=== PATIENT | male | born 1975 | race Caucasian/White ===

== ENCOUNTER 2017-08-31 09:12 | Emergency (ER) | payer SELFPAY ==
[2017-08-31] MEDS ORDERED: HYDROcodone/Acetaminophen 5/325 mg Tablet ONE (09:47)
[2017-08-31] MEDS ORDERED: Ondansetron HCl/PF 4 MG/2 ML Vial ONE (10:07)
[2017-08-31 10:09] LABS: #Eosinphils 0.2 thou/uL (0.0-0.7); #Lymphocytes 1.4 thou/uL (1.20-3.40); #Monocytes 0.9 thou/uL (0.11-0.59); #Neutrophils 6.6 thou/uL (1.40-6.50); %Basophils 0.3 % (0.0-1.0); %Eosinophils 1.7 % (0.0-10.0); %Lymphocytes 15.5 % (21.0-51.0); %Monocytes 9.5 % (0.0-10.0); Hematocrit 44.3 % (42.0-52.0); Mean Platelet Volume 6.8 fL (7.4-10.4); Red Blood Cell (RBC) Count 4.78 mill/uL (4.70-6.10); White Blood Cell (WBC) Count 9.1 thou/uL (4.8-10.8)
[2017-08-31 10:20] LABS: Lactic Acid - Sepsis 0.8 mmol/L (0.5-2.2)
[2017-08-31 10:25] LABS: ALT (SGPT) 39 U/L (8-55); AST (SGOT) 27 U/L (5-34); Alkaline Phosphatase 76 U/L (40-150); Anion Gap 10 mmol/L (10-20); BUN (Urea Nitrogen) 12 mg/dL (8.9-20.6); Bilirubin, Total 0.4 mg/dL (0.2-1.2); Calc. Creatinine Clearance 0 mL/min (70-130); Carbon Dioxide 28 mmol/L (22-29); Chloride 103 mmol/L (98-107); Estimated GFR-MDRD Greater than 90; Globulin 3.4 g/dL (2.4-3.5); Protein, Total 7.2 g/dL (6.0-8.3)
[2017-08-31] MEDS ORDERED: Clindamycin/D5W 600 mg/50 ml Premix Bag ONE (10:40)
--- NOTE | 2017-08-31 11:41 | CT ---
CT NECK WITH CONTRAST: Date: 08/31/17 HISTORY: 42-year-old male with left oral swelling and tenderness, with fever, chills, and body aches. Rapid s welling of left side of face. FINDINGS: There is soft tissue thickening of the left buccal space. There is a tiny buccal-side osseous cortic al defect on the order of 1 or 2 mm in size around the root of the left first mandibular molar tooth . There is a small, low density collection abutting the buccal surface of the left mandible overlyin g that region, consistent with a small periodontal abscess. This measures approximately 1.5 cm AP x 0.5 cm transverse x 0.5 cm craniocaudal, and has a thin, enhancing lateral wall. There is extensive fat stranding and soft tissue swelling representing edema throughout the left buc jasmin space, which spills over into the superficial, subcutaneous fat on the left, but also crossing t he midline to involve some of the right side. The submandibular, parapharyngeal, technical proposal writer, retropharyngeal, pharyngeal mucosal, perivertebral, c arotid, parotid, and posterior cervical spaces demonstrate no acute or aggressive process. Bilateral parotid glands are symmetrically somewhat small in size. The left sublingual gland is mildly enlarg ed. No other abnormality of the sublingual space. Larynx and thyroid gland demonstrate no major abno rmality. IMPRESSION: Evidence for a tiny odontogenic (periodontal) abscess in the left perimandibular buccal space. POS: [facility]
[2017-08-31] MEDS ORDERED: ISOVUE-370 76%-LOCM 1 ML ONE (16:04)
== END 2017-08-31 11:31 | disposition home or self-care (01) ==
LOC: ERS 09:12
DX: K12.2 Cellulitis and abscess of mouth (principal); F17.210 Nicotine dependence, cigarettes, uncomplicated
CPT/HCPCS: 36415; 70491; 80053; 83605; 85025; 85652; 86140; 87040; 96365; 96375; J2405; J3490